=== PATIENT | female | born 1950 | race Caucasian/White ===

== ENCOUNTER 2019-03-08 06:43 | Day surgery (SDC) | payer MEDICARE, OTHER, SELFPAY ==
--- NOTE | 2019-02-24 17:17 | HP.PCM_ITS ---
History and Physical Patient Name: Mar Ace : 1950 From: TONYA MEHTA PA-C DATE OF SURGERY: 03/08/2019 SCHEDULED PROCEDURE: 1. Left thumb and long finger trigger finger release 2. Left carpometacarpal joint arthroplasty 3. Right index finger corticosteroid injection A1 kevin HISTORY OF PRESENT ILLNESS: Preoperative history and physical exam was performed on February 24, 2019. This is a 68-year-old female who presents today for preoperative visit. Patient has been having ongoing pain for several months. There's been no trauma or injury. Pain can resist high as a 10/10 with activity. She does get some numbness and tingling on the dorsum of the left hand. Patient has increased pain with activities of daily living that require any gripping, grasping or lifting. 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 Patient also complains of catching of the left long finger and thumb. She is also getting catching in the right index finger. Patient has pain at the base of the left thumb at the CMC joint. Patient has tried [id number] Tylenol with no significant relief. X-rays of the left thumb reveal severe CMC osteoarthritis. Her finger release with left carpometacarpal joint arthroplasty and corticosteroid injection right index finger A1 kevin. Patient has obtain surgical clearance from the primary care physician. 10 has history pertinent for atrial fibrillation, hypertension, history of gout, asthma. She currently takes Eliquis. Primary care physician states she can come off of the anticoagulation 48 hours prior to the surgery. patient currently denies any chest pain, shortness of breath, fevers chills, recent infections. REVIEW OF SYSTEMS: ROS: Const: Denies change in appetite, fever,or weight change. CV: Reports heart murmur and irregular heartbeat, but denies chest pain. Resp: Reports cough, pneumonia and SOB, but denies tuberculosis and wheezing. GI: Reports constipation, diarrhea, difficulty swallowing, heartburn and nausea, but denies bloody stools and vomiting. : Urinary: reports incontinence. Musculo: Reports leg swelling, limp, trouble walking and weakness. Skin: Reports tattoo, but denies Raynaud's and history of shingles. Neuro: Reports difficulty with balance, dizziness and numbness/tingling but denies ambulatory dysfunction and tremor. Psych: Reports insomnia, but denies anxiety and stress. Darion/Lymph: Reports bleeding/bruising tendency, but denies anemia and past transfusion. Reviewed, no changes. PAST MEDICAL HISTORY: Advance Care Plan: No Advance Directives Effective Date: 08/19/2017 PMH: Medical Problems: Arthritis, Asthma, Gout, High Blood Pressure, Hypercholesterolemia, Afib Accidents: Fracture - TOES & FINGERS Surgical Hx: Colon Resection, Hernia Repair, Hysterectomy, Tubal Ligation, Gallbladder RT Knee Partial - (2004) Carpal Tunnel Release LT, Carpal Tunnel Release RT, Knee Arthroscopy RT LT TKR - (08/17/2016) MAHENDRA @ [facility] Stomach Surgery - W/REMOVAL OF SKIN RT Thumb - [facility] Anesthesia Complications: None Assistive Devices: Glasses Reviewed, no changes. SOCIAL HISTORY: SH: Marital: .Occupation: Disabled.Work Status: Disabled.Hand Dominance: Right-handed. Personal Habits: Cigarette Use: Former Cigarette Smoker.Alcohol: Denies use.Drug Use: Denies Use.Enjoy Exercising: Never Exercises. Reviewed, no changes. VITALS: Ht: 64 Wt: 280lb Wt k.008 BMI: 48.1 BP: 124/76 Pulse: 72 Resp: 16 T: 97.7 T: 36.5C ALLERGIES: Allopurinol MEDICATIONS: Oxycodone HCL 5 mg 1-2 by mouth every 6 hours, Dicyclomine HCL 20 mg 1 ta b PO bid, Propafenone HCL 300 mg 1 tab PO bid, Eliquis 5 mg 1 tab PO bid, Metoprolol Succinate ER 25 mg 1 tab PO bid, Metoprolol Succinate ER 50 mg 1 tab PO bid, Simvastatin 80 mg 1 tab PO qhs, Pantoprazole Sodium 40 mg 1 by mouth every day, Ventolin HFA 108 (90 Base) mcg/Act use as needed, Ipratropium [place]/Albuterol Sulfate 0.5-2.5 (3) mg/3ml use as needed PRE-OP EXAM: General appearance:NORMAL Other: Eyes: Conjunctivae and lids: NORMAL Pupils: ERR Ears, Nose, Mouth, and Throat: NORMAL Other: Inspection of lips, teeth and gums: NORMAL Other: Neck: Examination of neck: no masses noted. Respiratory: Assessment of respiratory effort: NORMAL Other: Auscultation of lungs: clear to auscultation no wheezes, rhonchi or rales. Cardiovascular: Auscultation of heart: regular rate and rhythm, no murmurs, gallops or rubs. Gastrointestinal: Exam of abdomen: soft, nontender, nondistended bowel sounds present. Lymphatic: Palpation of nodes in neck: NORMAL Other: Palpation of nodes in Axillae: NORMAL Other: Neurological: see below Psychiatric: Orientation to time, place and person: NORMAL Other: Mood and affect: NORMAL Other: PHYSICAL EXAMINATION: On exam of the left hand patient has tenderness to palpation at the A1 kevin of the left long finger and base of the thumb with active triggering. Left hand is cool to touch without erythema or signs of infection. She has tenderness to palpation of the first CMC joint. She has positive grind test on the left. There is also tenderness to palpation on the right hand at the base of the right index finger at the A1 kevin. She gets active triggering. Full extension. Sensation intact to light touch to bilateral fingers. Her vascularly intact. IMAGING STUDIES: X-rays of the left hand reveals severe first CMC joint osteoarthritis with complete loss of joint space, subchondral sclerosis, osteophyte formation and radial subluxation of the joint. IMPRESSION: 1. Severe left thumb carpometacarpal joint osteoarthritis 2. Left long finger stenosing tenosynovitis 3. Left thumb stenosing tenosynovitis 4. Right index finger stenosing tenosynovitis 5. Hypertension 6. Atrial fibrillation 7. Hypercholesterolemia 8. Gout 9. History of asthma PLAN: Dr. Herrera Carvajal did discuss and review with the patient all treatment options including surgical versus nonsurgical options. Patient does wish to proceed with the above-stated procedure. Potential risks, benefits, and complications of the procedure were discussed in detail including but not limited to , infection, nerve and blood vessel damage, persistent pain, numbness, tingling, paresthesias, blood clot, pulmonary embolism, and requirement for possible further surgery. The patient expressed full understanding and has no further questions for the doctor. Patient does agree to proceed with the above-stated procedure and has signed the surgery consent form. This dictation was created using voice recognition software. Phonetic and/or grammatical errors may exist. ___ I have re-examined the patient. There are no clinical changes since date of exam. ___ See progress notes for changes. ___ Dictated on admission Date: Time: Signature:
--- NOTE | 2019-03-03 13:01 | EKG12_ITS ---
Test Reason : PRE-OP Blood Pressure : / mmHG Vent. Rate : 086 BPM Atrial Rate : 278 BPM P-R Int : 000 ms QRS Dur : 096 ms QT Int : 372 ms P-R-T Axes : 000 081 -41 degrees QTc Int : 445 ms Atrial flutter with variable A-V block Nonspecific ST abnormality Abnormal QRS-T angle, consider primary T wave abnormality Abnormal ECG Confirmed by VASU PATRICK ([id number]), writer editor LAYTON PULLIAM ([id number]) on 03/06/2019 2:13:24 PM Referred By: Herrera Carvajal Confirmed By:VASU PATRICK
[2019-03-03 13:59] LABS: Hematocrit 38.2 % (37-47); Hemoglobin 11.6 g/dL (12.0-15.0); Mean Corp Hgb Conc 30.4 g/dL (32-36); Mean Corpuscular Hgb 27.2 pg (27.0-32.0); Mean Corpuscular Volume 89.5 fL (81-99); Mean Platelet Vol. 12.3 fl (6.2-12.0); Platelet Count 178 K/mm3 (150-450); RBC Distribution Width CV 14.3 % (11.6-14.6); RBC Distribution Width SD 45.7 fl (35.1-43.9); Red Blood Count 4.27 M/mm3 (4.2-5.4); White Blood Count 4.4 K/mm3 (4.4-11.0)
[2019-03-03 14:22] LABS: Anion Gap 3 (5-15); BUN 19 mg/dL (7-18); BUN/Creat Ratio 15.6 RATIO (10-20); Calcium,Total 9.1 mg/dL (8.5-10.1); Chloride 114 mmol/L (98-107); Creatinine, Serum 1.22 mg/dL (0.55-1.02); EST Glomerular Filtration Rate 47 mL/min (>60); Est Glom Filt Rate - Afr Amer 57 mL/min (>60); Glucose 114 mg/dL (74-106); Potassium 4.3 mmol/L (3.5-5.1); Sodium Level 142 mmol/L (136-145)
[2019-03-08] VITALS (14 sets, daily range): BP systolic 80–131; BP diastolic 23–101; PULSE 85–105; RESP 16–20; TEMP 36.1–36.8; O2SAT 92–100
[2019-03-08] MEDS: Lactated Ringers 1,000 ML 100 ML IV (07:38)
[2019-03-08] MEDS: Betamethasone/Betamethasone 30 MG/5 ML Vial (08:29)
[2019-03-08] MEDS: Bupivacaine Mpf 0.5% 30 ML VIAL (09:36)
--- NOTE | 2019-03-08 09:37 | PCM.OPRPT ---
Report of Operation Date of Procedure: 03/08/19 Pre-Operative Diagnosis: 1. Left first CMC osteoarthritis. 2. Left long trigger finger. 3. Left trigger thumb. 4. Right index trigger finger Post-Operative Diagnosis: 1. Left first CMC osteoarthritis. 2. Left long trigger finger. 3. Left trigger thumb. 4. Right index trigger finger Surgery/Procedure Performed:: 1. Left first CMC interposition arthroplasty. 2. Left long trigger finger release. 3. Left trigger thumb release. 4. Right index trigger finger corticosteroid injection. 5. Left FCR tendon transfer Description of Surgical Findings:: Complete release of A1 pulleys, well suspended was metacarpal fiberglass boat maker: Elan Persaud Type of Anesthesia:: General Anesthesiologist: Adan Boogie Special Medications: 2 g Ancef Specimen's removed: Bony resection Estimated Blood Loss (mL): 5 Fluids Replaced: 700 mL crystalloid Description of Procedure: On the day of the procedure patient's left upper extremity was marked in the preoperative area. Patient was brought back to the operating room where placed in the supine position with the left hand on the armboard. Anesthesia assumed control C-spine airway. All bony prominences were identified well-padded. For the corticosteroid injection on the right hand a timeout was called never agreed upon the side, the site, procedure performed, patient's identity antibiotic given. On the contralateral side the right hand was prepped with alcohol at the base of the index finger. 1/2 mL of Celestone and 1/2 mL of lidocaine were drawn up. A 25-gauge needle was used after sterile prep to place a corticosteroid injection in the tendon sheath. Patient tolerated this well Band-Aid was placed. He was placed on the left upper arm left hand was prepped in a sterile fashion while the surgeon scrubbed. Upon reentering the room the L upper extremity was draped in a standard orthopedic fashion. Incisions were marked out over the first and third digits as well as the dorsum of the thumb. Timeout was called and it was agreed upon the side and site, the procedure to be performed, antibiotic given and patient's identity. Esmarch bandage was used to exsanguinate the extremity and 250 mmHg was used in the tourniquet. Incision was taken at the skin for the third digit. Scissors were used to bluntly dissect until the A1 kevin was identified. A1 kevin was incised in a longitudinal fashion and completely released leaving an ulnarly based flap. The third digit was then taken through range of motion and no triggering was noted. Wound was copiously irrigated out with normal saline. Incision was closed with 3-0 nylon. Incision was taken at the skin volar thumb crease. Scissors were used to bluntly dissect until the A1 kevin was identified. A1 kevin was incised in a longitudinal fashion and completely released leaving an ulnarly based flap. The thumb digit was then taken through range of motion and no triggering was noted. Our attention was then directed towards the dorsum of the thumb where the first CMC arthroplasty commenced. Incision was taken down through skin. Blunt dissection was taken through subcutaneous tissues. Superficial nerve was identified and retracted out of the way. Radial artery was identified and retracted out of the way. Once we are able to identify the joint arthrotomy was made and the trapezium was identified. Once the trapezium was identified dorsal and volar aspects were debrided of connective tissue. Saw was then used to make a cruciform cut in an osteotomy was completed with the osteotome. Once this was done a rondure was used to remove the bone fragments and the trapezium in its entirety. Attention was then directed towards the FCR to harvest. FCR was identified in the wrist and FiberWire suture was placed around it passed up into the forearm. We then made a small incision in the form and brought the FiberWire through. Transection of the FCR was done in the forearm. The FCR tendon was then fed down to the wrist and into the joint in the previous incision. Vicryl suture was then used to tag the end of the graft for transfer. Attention was then directed towards the proximal end of the first metacarpal. A bur was used to make a bone tunnel for tendon transfer. Loop suture was then passed through the upper holes and used to pull the graft through the bone tunnel. Once this was done a sling was made and 3-0 Ethibond suture was used to tie the tendon on itself. Once the tendon was appropriately secured anchovy was made with the remainder of the tendon. This was sewn down into the joint using 3-0 Ethibond. Copious amounts of irrigation were used throughout the procedure and prior to closure of the wound. Arthrotomy was closed with 2-0 Vicryl skin was closed with 2-0 Vicryl and 4-0 Monocryl with Steri-Strips. Xeroform dressing was placed. Sterile dressing was placed. Compressive dressing was placed. Tourniquet was let down. Well-padded splint was then placed with the thumb in abduction. Patient was then awakened by anesthesia and transferred to the PACU for recovery. Postoperative plan: Patient will remain in the splint for 2 weeks. 2 weeks we will check the incision and remove any sutures or tails. He will be transferred to a cast and abduction at that time. They will then follow standard postoperative protocol for first CMC arthroplasty with Occupational Therapy. - Complications none - Admit VTE Documentation VTE Present on Admission: No VTE Mechan Device Prophylaxis: SCD's VTE Pharm Prophylaxis ordered?: No Reason prophylaxis not ordered:: Treatment Not Indicated
[2019-03-08] MEDS: Ketorolac 30 MG/ML Syringe IV (10:39)
--- NOTE | 2019-03-08 11:00 | EKG12_ITS ---
Test Reason : POSTOP Blood Pressure : / mmHG Vent. Rate : 105 BPM Atrial Rate : 107 BPM P-R Int : 000 ms QRS Dur : 116 ms QT Int : 386 ms P-R-T Axes : 000 082 270 degrees QTc Int : 510 ms Atrial fibrillation Nonspecific T- wave Abnormality Abnormal ECG Confirmed by HUMZA LAND, KODY ([id number]), medical editor LAYTON PULLIAM ([id number]) on 03/15/2019 2:42:22 PM Referred By: Herrera Carvajal Confirmed By:KODY CHING MD
[2019-03-08] MEDS: Lactated Ringers 1,000 ML 125 ML IV (11:22)
[2019-03-08] MEDS: oxyCODONE 5 MG Tablet PO (12:49)
== END 2019-03-08 13:53 | disposition home or self-care (01) ==
LOC: SDC 06:44 → AC 06:44
PROVIDERS: Anesthesiology; Family Provider Internal Medicine; PCP Internal Medicine; Referring Provider Specialist; Visit Provider Specialist
PROC: (CPT 25447; principal; 2019-03-08 08:00)
DX: M18.9 Osteoarthritis of first carpometacarpal joint, unspecified (principal); M65.332 Trigger finger, left middle finger; M65.312 Trigger thumb, left thumb; M65.321 Trigger finger, right index finger; I10 Essential (primary) hypertension; E78.00 Pure hypercholesterolemia, unspecified; I48.91 Unspecified atrial fibrillation; M10.9 Gout, unspecified; J45.909 Unspecified asthma, uncomplicated; M65.842 Other synovitis and tenosynovitis, left hand; M65.841 Other synovitis and tenosynovitis, right hand; K21.9 Gastro-esophageal reflux disease without esophagitis; Z79.01 Long term (current) use of anticoagulants; Z79.899 Other long term (current) drug therapy; Z87.891 Personal history of nicotine dependence
CPT/HCPCS: 01830; 20552; 25310; 25447; 26055 ×2; 36415; 80048; 84484; 85027; 93005; J7120; J0702; J2405

== ENCOUNTER 2019-05-17 09:30 | Outpatient (RCR) | payer MEDICARE, OTHER, SELFPAY ==
--- NOTE | 2019-04-06 12:33 | HP.OTEVAL ---
Patient's Visit Information KARMA TREJO is a 68 year old F, referred to Occupational Therapy by José Luis Klein PA-C, with a diagnosis of left unilateral primary osteoarthritis of 1st cmc joint. Date of Evaluation: 04/06/19 Occupational Therapist: Sudha Davis, CAMRYN/Usman, CHT - Subjective Subjective: This 68 year old female was seen for OT eval with dx of unilateral primary osteoarthritis left firest carpometacarpal joint, left middle finger and thumb trigger finger. Pt states she struggled with left thumb pain for years- she did use a thumb brace for daily tasks due to the pain. pt decided to have sx about 4 weeks ago and arrives today for custom orthosis. pt states she if feeling fine, but has notices some posititional tingling within her LF/RF. - ADLs Fasteners: Buttons, Zippers Eating: Use silverware Bathing: Handle washcloth & soap Toileting: Manage clothing Comments: can mtg but challenging Kitchen: Chop with knife, Peel fruits & vegetables, Open jars, Open bottle caps, Lift saucepan, Take dish out of oven, Place dish in microwave Comments: pt is mtg her ADLs with one hand or use of fingers on her left hand for daily tasks as need. - Pain left hand/wrist 0 Pain Intensity Range: 0, 6 - ROM Wrist: right 45/55 left 40/40 CMC: right 20 right 5 MP: right 65 left 20 IP: right 70 left 10 - Strength Bulb Brander: right 35# left NT Lateral Pinch: right 8# left NT Tripod Pinch: right 8# left NT - Sensation Sensation Comments: denies. states MF and side of thumb numb since sx - Quick DASH-Disab of Arm,Shoulder& Hand Quick DASH Score: 81.8175 - Goals Goal:100% adherence to protocol: Yes Comment: CMC arthroplasty Goal:Daily scar massage when approriate: Yes Goal:ROM equal to unaffected hand: Yes Goal:Bulb Brander/Pinch strength at least 75% of unaffected hand: Yes Goal:No pain with affected hand use: Yes Goal:PIP Circumferences equal to unaffected hand: Yes Goal:Full use of affected hand in daily activities including: Yes Goal:Improvement in sensation documented by [place]-Sandeep: Yes Goal:Decrease scar hypersensitivity: Yes - Rehabilitation General Assessment: pt 4 weeeks s/p left CMC arthroplasty with MF and thumb trigger finger release. Pt presents today with limited wrist/digit and thumb ROM and strength due to recent arthroplasty. this has limited pts ind. with ADLs and IADLS. Pt would benefit from skilled OT services 1-2x week for 4-6 weeks to return pt to PLOF. Rehabilitation Potential: Good - Anticipated Interventions Anticipated Interventions: A/AAROM/PROM, Strengthening, Edema Control, Scar Care, Triggerpoint Release, Desensitization, Sensory Retraining, Modalities, Orthoses, Joint Protection/Energy Conservation, Ergonomic Education - Visit Plan Frequency: 1-2x /Week Duration: 4-6 Weeks TEXT: Thank you for the opportunity to evaluate your patient. For Medicare and Medicare HMO plans, please review the plan of care and approve it. It will need to be FAXED BACK to us at [phone] for Medicare purposes. Please let me know if there are questions or concerns regarding this plan of care. Physician Signature: Date:
--- NOTE | 2019-04-06 15:31 | HP.OTEVAL ---
Patient's Visit Information KARMA TREJO is a 68 year old F, referred to Occupational Therapy by José Luis Klein PA-C, with a diagnosis of left unilateral primary osteoarthritis of 1st cmc joint. Date of Evaluation: 04/06/19 Occupational Therapist: Sudha Davis, CAMRYN/Usman, CHT - Subjective Subjective: This 68 year old female was seen for OT eval with dx of unilateral primary osteoarthritis left firest carpometacarpal joint, left middle finger and thumb trigger finger. Pt states she struggled with left thumb pain for years- she did use a thumb brace for daily tasks due to the pain. pt decided to have sx about 4 weeks ago and arrives today for custom orthosis. pt states she if feeling fine, but has notices some posititional tingling within her LF/RF. - ADLs Fasteners: Buttons, Zippers Eating: Use silverware Bathing: Handle washcloth & soap Toileting: Manage clothing Comments: can mtg but challenging Kitchen: Chop with knife, Peel fruits & vegetables, Open jars, Open bottle caps, Lift saucepan, Take dish out of oven, Place dish in microwave Comments: pt is mtg her ADLs with one hand or use of fingers on her left hand for daily tasks as need. - Pain left hand/wrist 0 Pain Intensity Range: 0, 6 - ROM Wrist: right 45/55 left 40/40 CMC: right 20 right 5 MP: right 65 left 20 IP: right 70 left 10 - Strength Chemical Research Worker: right 35# left NT Lateral Pinch: right 8# left NT Tripod Pinch: right 8# left NT - Sensation Sensation Comments: denies. states MF and side of thumb numb since sx - Quick DASH-Disab of Arm,Shoulder& Hand Quick DASH Score: 81.8175 - Goals Goal:100% adherence to protocol: Yes Comment: CMC arthroplasty Goal:Daily scar massage when approriate: Yes Goal:ROM equal to unaffected hand: Yes Goal:Chemical Research Worker/Pinch strength at least 75% of unaffected hand: Yes Goal:No pain with affected hand use: Yes Goal:PIP Circumferences equal to unaffected hand: Yes Goal:Full use of affected hand in daily activities including: Yes Goal:Improvement in sensation documented by [place]-Sandeep: Yes Goal:Decrease scar hypersensitivity: Yes - Rehabilitation General Assessment: pt 4 weeeks s/p left CMC arthroplasty with MF and thumb trigger finger release. Pt presents today with limited wrist/digit and thumb ROM and strength due to recent arthroplasty. this has limited pts ind. with ADLs and IADLS. Pt would benefit from skilled OT services 1-2x week for 4-6 weeks to return pt to PLOF. Today therapist ruchi. custom palm based thumb spica instructed in care and wear of othosis,as well as skin care and precaution. pt demo understanding and ind. with donning and doffing orthosis. Therapist ed. pt in wrist and digit ROM, as well as supported thumb flexion. pt demo understanding and agree to POC. Rehabilitation Potential: Good - Anticipated Interventions Anticipated Interventions: A/AAROM/PROM, Strengthening, Edema Control, Scar Care, Triggerpoint Release, Desensitization, Sensory Retraining, Modalities, Orthoses, Joint Protection/Energy Conservation, Ergonomic Education - Visit Plan Frequency: 1-2x /Week Duration: 4-6 Weeks TEXT: Thank you for the opportunity to evaluate your patient. For Medicare and Medicare HMO plans, please review the plan of care and approve it. It will need to be FAXED BACK to us at [phone] for Medicare purposes. Please let me know if there are questions or concerns regarding this plan of care. Physician Signature: Date:
--- NOTE | 2019-05-17 16:11 | HP.OTREVAL ---
José Luis Klein PA-C, It has been my pleasure to treat KARMA TREJO over the last 6 visits for left unilateral primary osteoarthritis of 1st cmc joint. Please see the progress note below for an update on the occupational therapy plan of care! Subjective: pt arrives 10 min late - pt states she is doing ok- pt states she is performing her t-putty 3-4 x a day for 3 min - pt states she has pain in MF that wakes her up at night- Objective/Function: 60/60. IP 60. MP 50. pt demo with scar tissue a left MF. left mf gabriela full ROM. left acid conditioning worker strength at 15# a increase from 5#- pt is progressing but concerns with limited return in strength and MF pain - therapsit ed. pt on healing process and due to the MF trigger finger she had for years she will have a increase healing time- pt to call dr if pain does not decrease in next three weeks Plan Plan: pt to call in three weeks Anticipated Interventions Anticipated Interventions: A/AAROM/PROM, Strengthening, Edema Control, Scar Care, Triggerpoint Release, Desensitization, Sensory Retraining, Modalities, Orthoses, Joint Protection/Energy Conservation, Ergonomic Education Please do not hesitate to contact me at [phone] by phone or if you have questions or concerns regarding this new plan of care! Sincerely, CAMRYN Mcclure/L, CHT
--- NOTE | 2019-08-14 16:15 | HP.OTDCSUM ---
HP - OT D/C Summary It has been my pleasure to treat KARMA TREJO under orders from José Luis Klein PA-C, for the diagnosis of left unilateral primary osteoarthritis of 1st cmc joint for a total of 6 visit(s). Please see the following information for a summary of their discharge status. - Overall Improvement % Improvement: 90 - Objective Objective/Function: 60/60. IP 60. MP 50. pt demo with scar tissue a left MF. left mf gabriela full ROM. left cra officer strength at 15# a increase from 5#- pt is progressing but concerns with limited return in strength and MF pain - therapsit ed. pt on healing process and due to the MF trigger finger she had for years she will have a increase healing time- pt to call dr if pain does not decrease in next three weeks - Goals Patient Goals: Regain Mobility, Regain Strength, Decrease Pain, Decrease Swelling/Stiffness, Improve Fine Motor Skills, Use Hand/Wrist/Arm Normally Again Goal:100% adherence to protocol: Yes Goal:Daily scar massage when approriate: Yes Goal:ROM equal to unaffected hand: Yes Goal:Freelance Data Entry/Pinch strength at least 75% of unaffected hand: Yes Goal:No pain with affected hand use: Yes Goal:PIP Circumferences equal to unaffected hand: Yes Goal:Full use of affected hand in daily activities including: Yes Goal:Improvement in sensation documented by [place]-Sandeep: Yes Goal:Decrease scar hypersensitivity: Yes - Plan Plan: D/C pt with HEP - D/C Information If there are questions or concerns regarding this patient's occupational therapy, please fell free to call me at [phone]. Thank you for the referral of this patient. Sincerely, Sudha Davis, OTR/L, CHT
== END 2019-05-17 19:00 | disposition home or self-care (01) ==
LOC: OT 09:30
PROVIDERS: Family Provider Internal Medicine; PCP Internal Medicine; Referring Provider Physician Assistant Surgical; Visit Provider Physician Assistant Surgical
DX: M18.12 Unilateral primary osteoarthritis of first carpometacarpal joint, left hand (principal)
CPT/HCPCS: 97035; 97110; 97140; 97166; 97530; 97760; 97763

== ENCOUNTER 2020-02-19 05:50 | Day surgery (SDC) | payer MEDICARE, OTHER, SELFPAY ==
[2020-01-23 11:25] LABS: Hemoglobin 12.2 g/dL (12.0-15.0); Mean Corp Hgb Conc 31.3 g/dL (32-36); Mean Corpuscular Hgb 27.8 pg (27.0-32.0); Mean Corpuscular Volume 88.8 fL (81-99); Mean Platelet Vol. 11.7 fl (6.2-12.0); Platelet Count 199 K/mm3 (150-450); RBC Distribution Width CV 16.2 % (11.6-14.6); Red Blood Count 4.39 M/mm3 (4.2-5.4); White Blood Count 5.5 K/mm3 (4.4-11.0)
--- NOTE | 2020-01-23 11:41 | EKG12_ITS ---
Test Reason : RE OP Blood Pressure : / mmHG Vent. Rate : 069 BPM Atrial Rate : 394 BPM P-R Int : 000 ms QRS Dur : 096 ms QT Int : 350 ms P-R-T Axes : 000 071 -82 degrees QTc Int : 375 ms Atrial fibrillation Low voltage QRS ST & T wave abnormality, consider inferior ischemia ST & T wave abnormality, consider anterolateral ischemia Abnormal ECG Confirmed by VASU PATRICK ([id number]), editor dictionary NEO BELTRAN ([id number] on 01/26/2020 2:41:45 PM Referred By: Florian Rodriguez Confirmed By:VASU PATRICK
[2020-01-23 11:57] LABS: Anion Gap 4 (5-15); BUN 17 mg/dL (7-18); Calcium,Total 9.3 mg/dL (8.5-10.1); Chloride 110 mmol/L (98-107); Creatinine, Serum 1.06 mg/dL (0.55-1.02); EST Glomerular Filtration Rate 55 mL/min (>60); Est Glom Filt Rate - Afr Amer 67 mL/min (>60); Glucose 80 mg/dL (74-106); Potassium 4.2 mmol/L (3.5-5.1); Sodium Level 141 mmol/L (136-145)
[2020-02-19] VITALS (20 sets, daily range): BP systolic 81–149; BP diastolic 62–99; PULSE 64–122; RESP 14–22; TEMP 36.3–36.8; O2SAT 89–99; BMI 46.5
[2020-02-19] MEDS: Lactated Ringers 1,000 ML 100 ML IV ×2 (06:40→09:14)
[2020-02-19] MEDS: Epinephrine (1 mg/ml) 1 MG/ML VIAL (07:50)
--- NOTE | 2020-02-19 08:46 | PCM.OPRPT ---
Report of Operation Date of Procedure: 02/19/20 Pre-Operative Diagnosis: SAIS, AC arthrosis, bicipital tendinopathy, rotator cuff tear right shoulder Post-Operative Diagnosis: same Surgery/Procedure Performed:: ASD, Rowena procedure, biceps tenotomy and RCR scholastic aptitude test grader: Manfred Linares Type of Anesthesia:: General Anesthesiologist: Aníbal Rolle - Admit VTE Documentation VTE Present on Admission: No VTE Mechan Device Prophylaxis: SCD's, Thigh High KHADIJAH Hose VTE Pharm Prophylaxis ordered?: No Reason prophylaxis not ordered:: Treatment Not Indicated
[2020-02-19] MEDS: Bupiv/Epi 0.5% Mpf 30 ML Vial (08:53)
--- NOTE | 2020-02-19 09:43 | EKG12_ITS ---
Test Reason : RHYTHM Blood Pressure : / mmHG Vent. Rate : 112 BPM Atrial Rate : 107 BPM P-R Int : 000 ms QRS Dur : 084 ms QT Int : 324 ms P-R-T Axes : 000 052 263 degrees QTc Int : [address] & T wave abnormality, consider inferolateral ischemia Abnormal ECG Confirmed by HUMZA LAND, KODY ([id number]), online content editor KYARA MACARIO ([id number]) on 02/21/2020 1:18:51 PM Referred By: Florian Rodriguez Confirmed By:KODY CHING MD
[2020-02-19] MEDS: Lactated Ringers 1,000 ML 125 ML IV (09:55)
[2020-02-19] MEDS: Digoxin 250 MCG/ML Ampul IV (09:58)
--- NOTE | 2020-02-19 11:07 | PCM.CONS.C ---
Reason for Consult Date of Consultation: 02/19/20 Reason for Consultation: Postoperative atrial fibrillation History of Present Illness: The patient is a 69 year old F with a history of chronic persistent atrial fibrillation, hypertension and preserved left ventricular systolic function who underwent surgical clearance by her primary program planner in [place]. Today she was scheduled to have shoulder surgery and postoperatively she was noted to be in atrial fibrillation with a rapid ventricular response rate she had been giving some adrenergic agents. She was also noted to be hypotensive and I was called to see her urgently in the postanesthesia care unit. At the time I arrived she appeared to be conscious with a heart rate approximately 130 bpm and irregularly irregular with a blood pressure of 81 mmHg. She did not have a functional IV which was in the process of being put in. She was given 0.25 mg of IV digoxin and IV fluids opened up. An EKG was looked at with demonstrated atrial fibrillation with ST changes consistent with digoxin effect. From her history she had denied any chest pain or shortness of breath or paroxysmal nocturnal dyspnea or pedal edema. She had been on metoprolol and digoxin as well as Eliquis the latter which have been discontinued 3 days prior to the surgery. [] Past Medical History Allergies/Adverse Reactions: Allergies allopurinol Allergy (Verified 02/19/20 06:17) Anaphylaxis carvedilol Allergy (Verified 02/19/20 06:17) Hives TAPE Allergy (Uncoded 02/19/20 06:17) Other BLISTER, BLEEDING Home Medications: Ambulatory Orders Medication Instructions Recorded Albuterol Inhaler [Ventolin Hfa] 1 - 2 puff INHALATION Q4H PRN PRN 08/06/16 Apixaban [Eliquis] 5 mg PO BID 08/06/16 Dicyclomine HCl 10 mg PO BID 08/06/16 Pantoprazole Sodium [Protonix] 40 mg PO DAILY 08/06/16 Simvastatin [Zocor] 80 mg PO QHS 08/06/16 Biotin 5 mg PO DAILY 01/17/20 Calcium Carbonate/Vitamin D3 1 ea PO DAILY 01/17/20 [Calcium 600 mg-Vit D3 10Mcg Tb] Cholecalciferol (Vitamin D3) 2,000 unit PO DAILY 01/17/20 [Vitamin D3] Cyanocobalamin (Vitamin B-12) 1,000 mcg PO DAILY 01/17/20 [Vitamin B-12] Digoxin [Digox] 125 mcg PO DAILY 01/17/20 Furosemide [Lasix] 20 mg PO PRN PRN 01/17/20 Ipratropium/Albuterol Respimat 1 puff INHALATION TID 01/17/20 [Combivent Respimat Inhal [place]] Metoprolol Tartrate [Lopressor 100 mg PO BID 01/17/20 (Beta Chandana)] Montelukast Sodium [Singulair] 10 mg PO DAILY 01/17/20 Multivit-Min/Iron/Folic/Lutein 1 ea PO DAILY 01/17/20 [Centrum Silver Women Tablet] Past Medical History (Chronic Problems): Chronic Problems Atrial fibrillation and flutter (Chronic) Arthritis (Chronic) Obesity (Chronic) Surgical History: appendectomy, cholecystectomy, hysterectomy - Partial, tonsillectomy, - Psychiatric History: No pertinent psych hx CUSTOMER DEVELOPMENT 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: No pertinent 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 DEVELOPMENT 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 history - *Family History Paternal History Items: No pertinent history Smoking Status: Former smoker Tobacco Use: Non-smoker Alcohol: None Drugs: None Review of Systems - Review of Systems General: Denies: Fever, Night Sweats, Fatigue HEENT: Denies: Vision Change Cardiovascular: Denies: Chest Discomfort, Shortness of Breath, Orthopnea, PND, Peripheral Edema, Palpitations, Lightheadedness, Dizziness, Near Syncope, Syncope Respiratory: Denies: Cough, Sputum Production, Hemoptysis Gastrointestinal: Denies: Hematemesis, Hematochezia, Melena Genitourinary: Denies: Dysuria, Hematuria Skin: Denies: Rash Subjectve: Pleasant lady in no distress at this time Objective: Vital Signs Temp Pulse Resp BP Pulse Ox 97.9 F 64 18 142/85 H 98 02/19/20 09:35 02/19/20 10:45 02/19/20 10:45 02/19/20 10:45 02/19/20 10:45 Oxygen Flow Rate (L/min) 6 Oxygen Delivery Method Simple Mask Weight: 271 lb 6.224 oz Body Mass Index (BMI) 46.5 Intake and Output for Last 24 Hours 02/17/20 02/18/20 02/19/20 23:59 23:59 23:59 Intake Total 115 / 115 Balance 115 / 115 General: Awake, Alert, Oriented x 3 HEENT: PERRL, EOMI, Sclera Non Icteric Neck: Supple, Good ROM, No Lymph Node Enlargement Lungs: Clear to auscultation Cardiovascular: Irregular Rhythm, Normal S1, Normal S2, No Murmurs, No Rubs, No Gallops Vascular: No Carotid Bruits, Normal Femoral Pulses, Normal Radial Pulses, Normal Dorsalis Pedal Pulse, Normal Posterior Tibial Pulses Abdomen: Bowel Sounds Present, Soft, Non Tender, No HSM, No Organomegaly Extremities: No Cyanosis, No Clubbing, No edema Musculoskeletal: No Erythema Lymphatic: No Lymph Node Enlargement Neurological: No Focal Motor or Sensory Deficit 02/19/20 09:55: Troponin I 0.046 H Rhythm: EKG: ECHO: Stress Test: Cardiac Cath: PCI: CT Surgery: Holter monitor: EPS: PPM: CXR: Chest CT Scan: Assessment/Plan 1. Atrial fibrillation with rapid ventricular response rate. Patient has known chronic persistent atrial fibrillation. She presented for surgery and at that time was noted to have atrial fibrillation with a controlled ventricular response rate. The above rapid response rate was likely secondary to medications administered perioperatively as well as relative dehydration. She has been appropriately rehydrated and her current blood pressure is noted to be approximately 140 mmHg and her heart rate is now in the 60s. Troponin ordered was essentially negative. My recommendation will be to continue to observe her for another 3 hours also and see what her heart rate and blood pressure is. She would receive appropriate intravenous hydration. She did have preserved left ventricular ejection fraction. If there is no significant change in her clinical condition I would recommend follow-up as an outpatient. Above has been discussed with anesthesiologist as well as the nurses
--- NOTE | 2020-02-19 12:45 | EKG12_ITS ---
Test Reason : RHYTHM Blood Pressure : / mmHG Vent. Rate : 073 BPM Atrial Rate : 138 BPM P-R Int : 000 ms QRS Dur : 080 ms QT Int : 336 ms P-R-T Axes : 000 045 264 degrees QTc Int : [address] & T Wave Abnormality, consider inferior-lateral ischemia Abnormal ECG Confirmed by HMUZA LAND, KODY ([id number]), editor & co founder KYARA MACARIO ([id number]) on 02/21/2020 1:18:38 PM Referred By: Florian Rodriguez Confirmed By:KODY CHING MD
--- NOTE | 2020-02-19 13:17 | SUR.PHASEII ---
WAS IN AFIB w/ RVR ON ARRIVAL TO PACU, HR 107-140'S, SBP 80-90'S. DR GREER WAS CONSULTED, TROPONIN 0.046, BOTH SYBIL SKINNER AND ZOEY AWARE. DENIES ANY CHEST PAIN, SOB, OTHER ASSOCIATED C/O. HAD IV DIGOXIN 250 MCG x 1 IN PACU, MONITORED FOR SEVERAL HOURS. OKAY TO D/C HOME, FOLLOW UP WITH BACK TENDER CYLINDER PER DR GREER. DR NGUYEN UPDATED AND AGREEABLE.
[2020-02-19] MEDS: HYDROcodone Bitartrate/Apap 5/325 Tablet PO (14:09)
== END 2020-02-19 14:54 | disposition home or self-care (01) ==
LOC: SDC 05:50 → AC 05:50
PROVIDERS: Anesthesiology; PCP Internal Medicine; Referring Provider Orthopaedic Surgery; Visit Provider Orthopaedic Surgery
PROC: (CPT 29827; principal; 2020-02-19 07:10)
DX: M19.011 Primary osteoarthritis, right shoulder (principal); M75.101 Unspecified rotator cuff tear or rupture of right shoulder, not specified as traumatic; Z11.59 Encounter for screening for other viral diseases; I48.19 Other persistent atrial fibrillation; I95.9 Hypotension, unspecified; I48.92 Unspecified atrial flutter; J45.909 Unspecified asthma, uncomplicated; E66.01 Morbid (severe) obesity due to excess calories; E78.00 Pure hypercholesterolemia, unspecified; I11.0 Hypertensive heart disease with heart failure; I50.9 Heart failure, unspecified; Z79.01 Long term (current) use of anticoagulants; Z79.899 Other long term (current) drug therapy; Z68.42 Body mass index [BMI] 45.0-49.9, adult; Z87.891 Personal history of nicotine dependence; Z98.84 Bariatric surgery status; G47.30 Sleep apnea, unspecified; Z86.718 Personal history of other venous thrombosis and embolism
CPT/HCPCS: 29824; 29826; 29827; 36415; 80048; 84484; 85027; 87635; 93005; 94799; J7120; J2405; U0003